=== PATIENT | male | born 1970 | race African-American/Black ===

== ENCOUNTER 2024-11-03 14:26 | Outpatient (CLI) | payer BC, SELFPAY ==
--- NOTE | ~2024-11-03 | XR_ITS ---
EXAMINATION: BONE SURVEY/METASTATIC SURVEY DATE: 11/03/2024 INDICATION: MGUS TECHNIQUE: A skeletal survey was performed including AP views of the chest, abdomen and pelvis; AP an d lateral/lateral swimmers views of the cervical, thoracic and lumbar spine; lateral view of the skul l, and AP and lateral views of the appendicular skeleton excluding the hands and feet. COMPARISON: None. FINDINGS: Mild thoracic dextrocurvature. Moderate cervical spondylosis. Lungs are clear with no focal airspace opacities, pulmonary edema, pleural effusion or pneumothorax. Heart size is normal. Multiple simple c ysts in the pelvis. No suspicious lytic or blastic bone lesions. IMPRESSION: 1. No lytic or blastic bone lesions suspicious for metastatic disease. Reviewed, dictated and finalized at location A.
--- OUTSIDE RECORDS SUMMARY | 2024-11-03 14:37 | XMS_ITS | Clinical Summary ---
Author Organization [facility] Address [address], [facility] [address] [place] [address] Phone Care Team Providers Care Real Estate Inspector Name Role Phone Anton Carvajal MD Primary Care Provider [phone] Vijay Smith MD Unavailable [phone] Allergies No known active allergies Medications amLODIPine (NORVASC) 10 MG Tablet Take 10 mg by mouth daily. 03/18/2021 Active lisinopril (PRINIVIL, ZESTRIL) 2.5 MG Tablet Take 2.5 mg by mouth. 03/18/2021 Active Active Problems Problem Noted Date Diagnosed Date Anemia due to unknown mechanism 10/09/2024 Neutropenia 10/09/2024 MGUS (monoclonal gammopathy of unknown significa nce) 10/09/2024 Encounters Date Type Department Care Team Description 10/09/2024 2:05 PM CDT Lab [facility] [address] [address] [facility] Anemia due to unknown mechanism; Neutropenia, unspecified type (HCC); MGUS (monoclonal gammopathy of unknown significance) 10/09/2024 2:00 PM CDT Office Visit [facility] [address] [address] Vijay Smith MD Anemia due to unknown mechanism (Primary Dx); Neutropenia, unspecified type (HCC); MGUS (monoclonal gammopathy of unknown significance) 10/09/2024 Travel from Last 3 Months Family History Medical History Relation Name Comments Cancer Father Relation Name Status Comments Brother Alive Child 1 Alive Child 2 Alive Child 3 Alive Child 4 Alive Father Mother Alive Sister 1 Alive Sister 2 Alive Social History Tobacco Use Types Packs/Day Years Used Date Smoking Tobacco: Former Cigarettes Smokeless Tobacco: Never Alcohol Use Standard Drinks/Week Comments Yes 0 (1 standard drink = 0.6 oz pur e alcohol) 1/2 pint on the weekends Sex and Gender Information Value Date Recorded Sex Assigned at Not on file Legal Sex Male 8:52 AM CDT Gender Identity Not on file Sexual Orientation Not on file Last Filed Vital Signs Vital Sign Reading Time Taken Comments Blood Pressure 128/74 10/09/2024 1:53 PM CDT Pulse 57 10/09/2024 1:53 PM CDT Temperature 36.8 C (98.2 F) 10/09/2024 1:53 PM CDT Respiratory Rate 18 10/09/2024 1:53 PM CDT Oxygen Saturation 99% 10/09/2024 1:53 PM CDT Inhaled Oxygen Concentration - - Weight 69.3 kg (152 lb 12.8 oz) 10/09/2024 1:53 PM CDT Height 167.6 cm (5' 6) 10/09/2024 1:53 PM CDT Body Mass Index 24.66 10/09/2024 1:53 PM CDT Plan of Treatment Upcoming Encounters Date Type Department Care Team (Late st Contact Info) Description 11/20/2024 2:15 PM CDT Office [facility] [address] [address] Vijay Smith MD [address] [place] [address] Health Maintenance Due Date Last Done Comments Hepatitis C Virus (HCV) Screening 1968 TdaP Immunization 1968 Hepatitis B Immunization (1 of 3 - 19+ 3-dose series) 01/01/1988 Cologuard 2013 Colonoscopy 2013 Colorectal Cancer Screening 2013 Immunochemical Fecal Occult Blood 2013 Pneumococcal Immunization (5 0+ years) (1 of 1 - PCV) 2018 Zoster Immunization (1 of 2) 2018 SARS-COV-2 Immunization (1 - 2023- season) 2023 PSA Discussion 01/01/2024 Influenza Immunization (#1) 2024 Respiratory Syncytial Virus (RSV) Immunization (Adult) (1 - 1-dose 75+ series) 01/01/2044 Human Papillomavirus (HPV) Immunization Aged Out No longer eligible b ased on patient's age to complete this topic Meningococcal Immunization (ACWY) Aged Out No longer eligible based on patient's age to complete this topic Rotavirus Immunization Aged Out No lo nger eligible based on patient's age to complete this topic Procedures Procedure Name Priority Date/Time Associated Diagnosis Comments SERUM FREE LIGHT CHAINS, [place] Routine 10/09/2024 2:08 PM CDT RANDOM UR PROTEIN ELECTROPHORESIS Routine 10/09/2024 2:08 PM CDT Anemia due to unknown mechanism Neutropenia, unspecified type (HCC) MGUS (monoclonal gammopathy of unknown significance) COMPLETE BLOOD COUNT (CBC) WITH DIFF Routine 10/09/2024 2:08 PM CDT Anemia due to unknown mechanism Neutropenia, unspecified type (HCC) MGUS (monoclonal gammopathy of unknown significance) LACTATE DEHYDROGENASE (LD) Routine 10/09/2024 2:08 PM CDT Anemia due to unknown mechanism Neutropenia, unspecified type (HCC) MGUS (monoclonal gammopathy of unknown significance) CMP (COMPREHENSIVE METABOLIC PANEL) Routine 10/09/2024 2:08 PM CDT Anemia due to unknown mechanism Neutropenia, unspecified type (HCC) MGUS (monoclonal gammopathy of unknown significance) HAPTOGLOBIN Routine 10/09/2024 2:08 PM CDT Anemia due to unknown mechanism Neutropenia, unspecified type (HCC) MGUS (monoclonal gammopathy of unknown significance) FOLIC ACID (FOLATE) Routine 10/09/2024 2 :08 PM CDT Anemia due to unknown mechanism Neutropenia, unspecified type (HCC) MGUS (monoclonal gammopathy of unknown significance) FERRITIN Routine 10/09/2024 2:08 PM CDT Anemia due to unknown mechanism Neutropenia, unspecified type (HCC) MGUS (monoclonal gammopathy of unknown significance) RETICULOCYTE COUNT (RETIC) Routine 10/09/2024 2:08 PM CDT Anemia due to unknown mechanism Neutropenia, unspecified type (HCC) MGUS (monoclonal gammopathy of unknown significance) IRON W/ IRON BINDING CAPACITY [place] Routine 10/09/2024 2:08 PM CDT Anemia due to unknown mechanism Neutropenia, unspecified type (HCC) MGUS (monoclonal gammopathy of unknown significance) VITAMIN B12 Routine 10/09/2024 2:08 PM CDT Anemia due to unknown mechanism Neutropenia, unspecified type (HCC) MGUS (monoclonal gammopathy of unknown significance) ELECTROPHORESIS W/ TOTAL PROTEIN SERUM Routine 10/09/2024 2:08 PM CDT Anemia due to unknown mechanism Neutropenia, unspecified type (HCC) MGUS (monoclonal gammopathy of unknown significance) IMMUNOGLOBULIN IGA, IGG & IGM QUANT Routine 10/09/2024 2:08 PM CDT Anemia due to unknown mechanism Neutropenia, unspecified type (HCC) MGUS (monoclonal gammopathy of unknown significance) from Last 3 Months Results * SERUM FREE LIGHT CHAINS, [place] (10/09/2024 2:08 PM CDT) FREE KAPPA LT CHAINS 15.4 2.9 - 20.7 mg/L [facility] FREE LAMBDA LT CHAINS 26.4 4.2 - 27.6 mg/L [facility] KAPPA/LAMBDA RATIO 0.58 0.22 - 1.74 [facility] 10/09/2024 2:08 PM CDT us Vijay Smith MD LAB SEND OUTS Final Result [facility] [address] [place] [address], * IRON W/ IRON BINDING CAPACITY [place] (10/09/2024 2:08 PM CDT) IRON 87 50 - 212 ug/dL [facility] UIBC 270 155 - 355 ug/dL [facility] TIBC 357 261 - 478 ug/dl [facility] % Saturation 24 20 - 50 % [facility] 10/09/2024 2:08 PM CDT Narrative [facility] - 10/09/2024 3:38 PM CDT Release to patient->Immediate Vijay Smith MD LAB SEND OUTS Final Result Performing Organization Address [facility]/ZIP Co de Phone Number [facility] [address] [place] [address], [place] [phone] * VITAMIN B12 (10/09/2024 2:08 PM CDT) Vitamin B12 271 180 - 914 pg/mL [facility] Blood 10/09/2024 2:08 PM CDT Narrative [facility] - 10/13/2024 2:36 PM CDT Release to patient->Immediate Vijay Smith MD CHEMISTRY ORDERABLES Final R esult [facility] [address] [place] [address], [place] [phone] * RANDOM UR PROTEIN ELECTROPHORESIS (10/09/2024 2:08 PM CDT) PROTEIN,TOTAL,URIN E <4.0 NOT ESTAB. MG/DL [facility] Comment:VERIFIED BY REPEAT ANALYSIS ALBUMIN, U 14.5 % [facility]TER [facility] [id number], U 8.3 % [facility] [id number], U 28.1 % [facility] BETA GLOBULIN, U 33.2 % [facility] GAMMA GLOBULIN, U 16.0 % CA NCER [facility] MPIKE, % NOT OBSERVED NOT OBSERVED % [facility] PLEASE NOTE: COMMENT [facility] Comment: PROTEIN ELECTROPHORESIS SCAN WILL FOLLOW VIA COMPUTER, MAIL, OR SWEAT BOX ATTENDANT DELIVERY. PDF . [facility] Urine 10/09/2024 2:08 PM CDT Narrative [facility] - 10/14/2024 1:08 PM CDT TESTING PERFORMED AT: [] LAB[address], [address], PHONE: [phone], SPANISH TEACHER: CLAUDETTE WORRELL, PHD Release to patient->Immediate Vijay Smith MD URINE ORDERABLES Final Resul t Performing Organization Address City/[facility] Co de Phone Number [facility] [address] [place] [address], * RETICULOCYTE COUNT (RETIC) (10/09/2024 2:08 PM CDT) Reticulocyte count 0.74 0.51 - 1.81 % [facility] RET-He 31.60 28.20 - 36.60 pg [facility] Comment: RET-He is a direct assessment of incorporation of iron into erythrocyte hemoglobin. It provides an indirect measure of the iron available for new erythropoiesis over past 2-4 days. Blood 10/09/2024 2:08 PM CDT Narrative [facility] - 10/09/2024 2:32 PM CDT Release to patient->Immediate Vijay Smith MD HEMATOLOGY ORDERABLES Final Result Performing Organization Address City/[facility] Co de Phone Number [facility] [address] [place] [address], [place] [phone] * (ABNORMAL) LACTATE DEHYDROGENASE (LD) (10/09/2024 2:08 PM CDT) LDH 100(L) 140 - 271 U/L [facility] Blood 10/09/2024 2:08 PM CDT [facility] - 10/09/2024 3:38 PM CDT Release to patient->Immediate Vijay Smith MD CHEMISTRY ORDERABLES Final R esult [facility] [address] [place] [address], [place] [phone] * (ABNORMAL) IMMUNOGLOBULIN IGA, IGG & IGM QUANT (10/09/2024 2:08 PM CDT) IGG 1,252 635 - 1,741 mg/dL [facility] IGA 103 66 - 433 mg/dL [facility] IGM 30(L) 45 - 281 mg/dL [facility] Blood 10/09/2024 2:08 PM CDT [facility] - 10/13/2024 2:00 PM CDT Release to patient->Immediate Vijay Smith MD CHEMISTRY ORDERABLES Final R esult Performing Organization Address City/[facility]/ZIP Co de Phone Number [facility] [address] [place] [address], [place] [phone] * HAPTOGLOBIN (10/09/2024 2:08 PM CDT) HAPTO 164 44 - 215 mg/dL [facility] Blood 10/09/2024 2:08 PM CDT [facility] - 10/13/2024 2:00 PM CDT Release to patient->Immediate Vijay Smith MD CHEMISTRY ORDERABLES Final R esult Performing Organization Address [facility] de Phone Number [facility] [place] [address], [place] [phone] * FOLIC ACID (FOLATE) (10/09/2024 2:08 PM CDT) Folate 10.71 >=5.90 ng/mL [facility] Blood 10/09/2024 2:08 PM CDT Narrative [facility] - 10/13/2024 2:36 PM CDT Release to patient->Immediate IS THE PATIENT REQUIRED TO BE FASTING FOR 12 HOURS?->No Vijay Smith MD CHEMISTRY ORDERABLES Final R esult Performing Organization Address [facility] Co de Phone Number [facility] [place] [address], [place] [phone] * FERRITIN (10/09/2024 2:08 PM CDT) Ferritin 122 24 - 336 ng/mL [facility] Blood 10/09/2024 2:08 PM CDT [facility] - 10/13/2024 2:36 PM CDT Release to patient->Immediate Vijay Smith MD CHEMISTRY ORDERABLES Final R esult Performing Organization Address [facility] Co de Phone Number [facility] [place] [address], [place] [phone] * (ABNORMAL) ELECTROPHORESIS W/ TOTAL PROTEIN SERUM (10/09/2024 2:08 PM CDT) PROTEIN, TOTAL, SERUM 6.8 6.0 - 8.5 G/DL [facility] ALBUMIN 3.7 2.9 - 4.4 G/DL [facility] [id number] 0.2 0.0 - 0.4 G/DL [facility] [id number] 0.7 0.4 - 1.0 G/DL [facility] BETA GLOBULIN 1.0 0.7 - 1.3 G/DL [facility] GAMMA GLOBULIN 1.2 0.4 - 1.8 G/DL [facility] M-SPIKE 0.5(H) NOT OBSERVED G/DL [facility] GLOBULIN, TOTAL 3.1 2.2 - 3.9 G/DL [facility] A/G RATIO 1.2 0.7 - 1.7 [facility] PLEASE NOTE: COMMENT [facility] Comment: PROTEIN ELECTROPHORESIS SCAN WILL FOLLOW VIA COMPUTER, MAIL, OR SWEAT BOX ATTENDANT DELIVERY. PDF . [facility] Blood 10/09/2024 2:08 PM CDT Narrative [facility] - 10/10/2024 3:08 PM CDT TESTING PERFORMED AT: [] [facility], [address] [place] [address], [place], [address], PHONE: [phone], SPANISH TEACHER: CLAUDETTE WORRELL, PHD Release to patient->Immediate us Vijay Smith MD CHEMISTRY ORDERABLES Final R esult [facility] [place] [address], * CMP (COMPREHENSIVE METABOLIC PANEL) (10/09/2024 2:08 PM CDT) Glucose 89 70 - 105 mg/dL [facility] Blood Urea Nitrogen 13 7 - 25 mg/dL [facility] Creatinine 1.1 0.7 - 1.3 mg/dL [facility] Sodium 137 136 - 145 mEq/L [facility] Potassium 3.9 3.5 - 5.1 mEq/L [facility] Chloride 101 98 - 107 mEq/L [facility] Bicarbonate 29 21 - 31 mEq/L [facility] Total Bilirubin 0.6 0.3 - 1.0 mg/dL [facility] Alk. Phosphatase 44 34 - 104 U/L [facility] Aspartate Aminotransferase 24 13 - 39 U/L [facility] Alanine Aminotransferase 18 7 - 52 U/L [facility] Total Protein 6.7 6.4 - 8.9 g/dL [facility] Albumin 4.5 3.5 - 5.7 g/dL [facility] Calcium 9.4 8.6 - 10.3 mg/dL [facility] Anion Gap 10.9 7.0 - 15.0 mEq/L [facility] Globulin 2.2 2.0 - 3.5 g/dL [facility] EGFR 79 >60 ml/min/1. 73m2 [facility] Comment: This eGFR is calculated using 2020 CKD-EPI Creatinine equation without race modifier based on the NKF-ASN task force recommendations Equation: cUGK=105*min(SCr/k,1)a*max(SCr/k,1)-1.200*0.9938Age*1.012 (if female), where SCr is serum creatinine, k is 0.7 for females and 0.9 for males, and a is -0.241 for females and -0.302 for males Blood 10/09/2024 2:08 PM CDT Narrative [facility] - 10/09/2024 3:38 PM CDT Release to patient->Immediate IS THE PATIENT REQUIRED TO BE FASTING FOR 8 HOURS?->No us Vijay Smith MD CHEMISTRY ORDERABLES Final R esult [facility] [place] [address], * (ABNORMAL) COMPLETE BLOOD COUNT (CBC) WITH DIFF (10/09/2024 2:08 PM CDT) WBC 3.7(L) 4.0 - 10.0 10*3/uL [facility] HGB 12.6(L) 13.7 - 17.5 g/dL [facility] HCT 39.2(L) 40.1 - 51.0 % [facility] PLT 206 163 - 369 10*3/uL [facility] MPV 10.0 9.4 - 12.4 fL [facility] RBC 4.49(L) 4.63 - 6.08 10*6/uL [facility] MCV 87 79 - 95 fL [facility] MCH 28.1 25.6 - 32.2 pg [facility] MCHC 32.1(L) 32.2 - 36.5 g/dL [facility] RDW 13.5 11.6 - 14.4 % [facility] Absolute Neutrophil Count 1,076 cells/uL [facility] Absolute Seg Count 1,076(L) 1,440 - 6,600 cells/uL [facility] Absolute Lymph Count 2,152 760 - 4,000 cells/uL [facility] Absolute [place] Count 371 160 - 1,200 cells/uL [facility] Absolute Eos Count 111 0 - 300 cells/uL [facility] Segmented Neutrophils 29(L) 36 - 66 % [facility] Lymphocytes 58(H) 19 - 40 % [facility] Monocytes 10 4 - 12 % [facility] Eosinophils 3 0 - 3 % [facility] WBC Estimate Low [facility] Platelet Estimate Normal [facility] RBC Morphology Normal [facility] R [facility] Blood 10/09/2024 2:08 PM CDT Narrative [facility] - 10/09/2024 4:15 PM CDT Release to patient->Immediate us Vijay Smith MD HEMATOLOGY ORDERABLES Final Result [facility] [place] [address], from Last 3 Months Insurance [facility] Care Teams Real Estate Inspector Relationship Specialty Start Date End Date Anton Carvajal MD [address] [place] [address] PCP - General Family Medicine 10/08/24 Vijay Smith MD [address] [place] [phone] Consulting Physician Oncology 10/08/24
--- OUTSIDE RECORDS SUMMARY | 2024-11-03 14:37 | XMS_ITS | Encounter Summary ---
Author Organization [facility] Address [address] [place] [address] Care Team Providers Care Energy Trader Name Role Phone Unavailable Primary Care Provider Unavailabl e Reason for Referral * Radiology Services (Routine) - Open Specialty Diagnoses / Procedures Referred By Janet wilson Referred To Contact Diagnoses MGUS (monoclonal gammopathy of unknown significance) Procedures XR BONE SURVEY COMPLETE Arash Martinez MD [address] [place] [phone] Phone: tel: fax: Referral ID Status Reason Start Date Expiration Date Visits Re quested Visits Authorized [id number] Open 11/03/2024 12/04/2025 1 1 Encounter Details Date Type Department Care Team (Late st Contact Info) Description 11/03/2024 1:30 PM CDT Office Visit [facility] Oncology and Hematology - [place] [address] [place] [address] [facility] [address] [place] [address] Arash Martinez MD [address] [place] [address] Chronic anemia (Primary Dx); MGUS (monoclonal gammopathy of unknown significance) Social History Tobacco Use Types Packs/Day Years Used Date Smoking Tobacco: Former Cigarettes 1 30 0 06/07/1982 - 06/07/2012 Smokeless Tobacco: Never Tobacco Cessation:Counseling Given: Not Answered Alcohol Use Standard Drinks/Week Comments Yes 0 (1 standard drink = 0.6 oz pur e alcohol) Socially Sex and Gender Information Value Date Recorded Sex Assigned at Not on file Legal Sex Male 1:05 PM CDT Gender Identity Not on file Sexual Orientation Not on file documented as of this encounter Last Filed Vital Signs Vital Sign Reading Time Taken Comments Blood Pressure 115/77 11/03/2024 1:34 PM CDT Pulse 53 11/03/2024 1:34 PM CDT Temperature 36.3 C (97.3 F) 11/03/2024 1:34 PM CDT Respiratory Rate 15 11/03/2024 1:34 PM CDT Oxygen Saturation 97% 11/03/2024 1:34 PM CDT Inhaled Oxygen Concentration - - Weight 68.6 kg (151 lb 3.2 oz) 11/03/2024 1:34 P M CDT Height 167.6 cm (5' 6) 11/03/2024 1:34 PM CDT Body Mass Index 24.4 11/03/2024 1:34 PM CDT documented in this encounter Plan of Treatment Upcoming Encounters Date Type Department Care Team (Late st Contact Info) Description 11/10/2024 4:30 PM CDT Telephone Check Up [facility] Oncology and Hematology [facility] [address] [place] [phone] Arash Martinez MD [address] [place], [place] [phone] 02/06/2025 11:45 AM CDT Office Visit [facility] Oncology and Hematology [place] [address] [place] [phone] Arash Martinez MD [address] [place] [address] [place] [phone] Scheduled Orders Name Type Priority Associated Diagnoses Orde r Schedule CBC WITH DIFFERENTIAL Lab Stat Chronic anemia Expected: 01/26/2025, Expires: 11/03/2025 VITAMIN B12 AND FOLATE Lab Routine Chronic anemia Expected: 01/26/2025, Expires: 11/03/2025 BASIC METABOLIC PANEL Lab Stat Chronic anemia Expected: 01/26/2025, Expires: 11/03/2025 XR BONE SURVEY COMPLETE Imaging Routine MGUS (monoclonal gammopathy of unknown significance) 1 Occurrences starting 11/03/2024 until 11/03/2025 documented as of this encounter Visit Diagnoses Diagnosis Chronic anemia- Primary Anemia, unspecified MGUS (monoclonal gammopathy of unknown significance) Monoclonal paraproteinemia documented in this encounter
--- OUTSIDE RECORDS SUMMARY | 2024-11-03 14:37 | XMS_ITS | Clinical Summary ---
Author Organization [facility] Address [address] [place] [phone] Care Team Providers Care Spray Gunner Name Role Phone Anton Carvajal MD Primary Care Provider [phone] Allergies No known active allergies Medications amLODIPine (NORVASC) 10 mg tablet 03/18/2021 Active lisinopriL (PRINIVIL,ZESTRIL) 2.5 mg tablet 03/18/2021 Activ e naproxen (NAPROSYN) 500 mg tablet 03/31/2021 Active Active Problems Problem Noted Date Diagnosed Date Right elbow pain 04/11/2021 Olecranon bursitis of right elbow 04/11/2021 Surgical History Surgery Date Site/Laterality Comments NO PAST SURGERIES Medical History Medical History Date Comments Hypertension Family History Medical History Relation Name Comments No Known Problems Father No Known Problems Mother Relation Name Status Comments Father Mother Social History Tobacco Use Types Packs/Day Years Used Date Smoking Tobacco: Never Personal Safety Answer Date Recorded Getting School Help Needed Not on file 06/22 Sex and Gender Information Value Date Recorded Sex Assigned at Not on file Legal Sex Male 12:57 AM CIRCUS RIDER Gender Identity Not on file Sexual Orientation Not on file 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 Not on file Not on file Obstetrics History Last Filed Vital Signs Vital Sign Reading Time Taken Comments Blood Pressure 145/80 05/16/2013 10:13 PM CIRCUS RIDER Pulse 90 05/16/2013 10:13 PM CIRCUS RIDER Temperature 38.3 C (100.9 F) 05/16/2013 10:13 PM CIRCUS RIDER Respiratory Rate - - Oxygen Saturation 95% 05/16/2013 10:13 PM CIRCUS RIDER Inhaled Oxygen Concentration - - Weight 74.8 kg (165 lb) 04/11/2021 8:39 AM CIRCUS RIDER Height 167.6 cm (5' 6) 04/11/2021 8:39 AM CIRCUS RIDER Body Mass Index 26.63 04/11/2021 8:39 AM CIRCUS RIDER Plan of Treatment Not on file Insurance [employer] Care Teams Spray Gunner Relationship Specialty Start Date End Date Anton Carvajal MD PCP - General Emergency Medicine 04/07/21
--- OUTSIDE RECORDS SUMMARY | 2024-11-03 14:37 | XMS_ITS | Clinical Summary ---
Author Organization [facility]ade Davila Address [address] [place] [address] Care Team Providers Care Patient Financial Representative Name Role Phone Unavailable Primary Care Provider Unavailabl e Allergies No known active allergies Medications amLODIPine (NORVASC) 10 mg tablet Take 10 mg by mouth daily. Active lisinopriL (PRINIVIL) 2.5 mg tablet Take 2.5 mg by mouth daily. Active Active Problems No known active problems Encounters Date Type Department Care Team Description 11/03/2024 1:30 PM CDT Office Visit [facility] - [place] [address] [place] [address] Arash Martinez MD Chronic anemia (Primary Dx); MGUS (monoclonal gammopathy of unknown significance) from Last 3 Months Family History Medical History Relation Name Comments No Known Problems Brother No Known Problems Child 1 No Known Problems Child 2 No Known Problems Child 3 No Known Problems Child 4 No Known Problems Child 5 Lung Cancer Father No Known Problems Mother Diabetes Sister 1 No Known Problems Sister 2 Relation Name Status Comments Brother Alive Child 1 Alive Child 2 Alive Child 3 Alive Child 4 Alive Child 5 Alive Father Mother Alive Sister 1 Alive [...] Mass Index 24.4 11/03/2024 1:34 PM CDT Plan of Treatment Upcoming Encounters Date Type Department Care Team (Late st Contact Info) Description 11/10/2024 4:30 PM CDT Telephone Check Up [facility] [place] [address] [place] [address] Arash Martinez MD [address] [place] [phone] 02/06/2025 11:45 AM CDT Office Visit [facility] [address] [place] [phone] Arash Martinez MD [address] [place] [phone] Health Maintenance Due Date Last Done Comments DTAP/TDAP/TD VACCINES (1 - Tdap) 01/01/1988 HEPATITIS B VACCINES (1 of 3 - 19+ 3-dose series) 12/09 COLORECTAL SCREENING 2013 Colorectal Cancer Screening 2013 FIT-DNA Q 3 years 2013 FIT/FOBT Q 1 year 2013 Flex Sig/CT Colonography Q 5 years 2013 ZOSTER VACCINE (1 of 2) 2018 Preventative Visit- Commercial 04/09/2024 INFLUENZA VACCINE (#1) 2024 Insurance [facility]
--- OUTSIDE RECORDS SUMMARY | 2024-11-03 14:37 | XMS_ITS | Clinical Summary ---
Author Organization [facility] Address [address] [address] Phone Care Team Providers Care Air Conditioning Specialist Name Role Phone Anton Carvajal MD Primary Care Provider [phone] Allergies No known active allergies Medications lisinopril (PRINIVIL) 2.5 MG tablet Take 2.5 mg by mouth 1 (one) time each day Active amLODIPine (NORVASC) 10 MG tablet Take 10 mg by mouth 1 (one) time each day Active ergocalciferol (VITAMIN D-2) 1.25 MG (21109 UT) capsule Take 50,000 Units by mouth 1 (one) time per week Active Active Problems Problem Noted Date Diagnosed Date Chronic kidney disease 09/16/2024 Protein electrophoresis outside reference range 09/16/2024 Complex renal cyst 09/16/2024 Abnormal renal function test 08/19/2024 Hypertension 08/19/2024 Type 2 diabetes mellitus without complication Resolved Problems Problem Noted Date Diagnosed Date Resolved Date Renal insufficiency 08/18/2024 09/17/19 25 Vitamin D deficiency 08/18/2024 025 Encounters Date Type Department Care Team Description 09/16/2024 1:00 PM CDT Telemedicine [facility] [address] [facility] [address] [place] [address] Mor Youngblood MD Chronic kidney disease, not otherwise specified (Primary Dx); Hypertension; Complex renal cyst; Protein electrophoresis outside reference range 08/19/2024 2:00 PM CDT Office Visit [facility] [address] [facility] [place] [address] Mor Youngblood MD Abnormal renal function test (Primary Dx); Hypertension; Type 2 diabetes mellitus without complication ([facility]) from Last 3 Months Social History Tobacco Use Types Packs/Day Years Used Date Smoking Tobacco: Never Smokeless Tobacco: Never Alcohol Use Standard Drinks/Week Comments Yes 0 (1 standard drink = 0.6 oz pur e alcohol) Sex and Gender Information Value Date Recorded Sex Assigned at Not on file Legal Sex Male 8:38 AM MDT Gender Identity Not on file Sexual Orientation Not on file Last Filed Vital Signs Vital Sign Reading Time Taken Comments Blood Pressure 122/81 08/19/2024 1:49 PM CDT Pulse 63 08/19/2024 1:49 PM CDT Temperature - - Respiratory Rate - - Oxygen Saturation - - Inhaled Oxygen Concentration - - Weight 70.8 kg (156 lb) 08/19/2024 1:49 PM CDT Height - - Body Mass Index - - Plan of Treatment Upcoming Encounters Date Type Department Care Team (Late st Contact Info) Description 12/16/2024 2:00 PM CDT Office Visit [facility] [address] [facility] [address] [place] [address] Mor Youngblood MD [address] [address] Health Maintenance Due Date Last Done Comments Diabetic Foot Exam 1978 Ophthalmology Exam 1978 Pneumococcal PPSV23 Highest Risk Adult (1 of 3 - PCV13 ) 01/01/1988 Influenza Vaccine (#1) 2024 Insurance [facility] Care Teams Air Conditioning Specialist Relationship Specialty Start Date End Date Anton Carvajal MD [facility] - General 08/14/24
--- OUTSIDE RECORDS SUMMARY | 2024-11-03 14:37 | XMS_ITS | Referral Summary ---
Author Organization [facility] Building Address [address] [place] [phone] Care Team Providers Care Academic Intern Name Role Phone Anton Carvajal MD Primary Care Provider [phone] Allergies No known active allergies Medications amLODIPine (NORVASC) 10 mg tablet 03/18/2021 Active lisinopriL (PRINIVIL,ZESTRIL) 2.5 mg tablet 03/18/2021 Activ e naproxen (NAPROSYN) 500 mg tablet 03/31/2021 Active Active Problems Problem Noted Date Diagnosed Date Right elbow pain 04/11/2021 Olecranon bursitis of right elbow 04/11/2021 Social History Tobacco Use Types Packs/Day Years Used Date Smoking Tobacco: Never Personal Safety Answer Date Recorded Getting School Help Needed Not on file 06/22 Sex and Gender Information Value Date Recorded Sex Assigned at Not on file Legal Sex Male 12:57 AM PROP SAWYER Gender Identity Not on file Sexual Orientation Not on file 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 Not on file Not on file Not on file Last Filed Vital Signs Vital Sign Reading Time Taken Comments Blood Pressure 145/80 05/16/2013 10:13 PM PROP SAWYER Pulse 90 05/16/2013 10:13 PM PROP SAWYER Temperature 38.3 C (100.9 F) 05/16/2013 10:13 PM PROP SAWYER Respiratory Rate - - Oxygen Saturation 95% 05/16/2013 10:13 PM PROP SAWYER Inhaled Oxygen Concentration - - Weight 74.8 kg (165 lb) 04/11/2021 8:39 AM PROP SAWYER Height 167.6 cm (5' 6) 04/11/2021 8:39 AM PROP SAWYER Body Mass Index 26.63 04/11/2021 8:39 AM PROP SAWYER Plan of Treatment Not on file Insurance [employer] O[employer] [facility] [employer] Care Teams Academic Intern Relationship Specialty Start Date End Date Anton Carvajal MD PCP - General Emergency Medicine 04/07/21
--- OUTSIDE RECORDS SUMMARY | 2024-11-03 14:37 | XMS_ITS | Clinical Summary ---
Author Organization [facility] Address [facility] [place] [address] Care Team Providers Care Web Coordinator Name Role Phone Unavailable Primary Care Provider Unavailabl e Social History Tobacco Use Types Packs/Day Years Used Date Smoking Tobacco: Never Assessed Sex and Gender Information Value Date Recorded Sex Assigned at Not on file Legal Sex Male 6:11 PM CDT Gender Identity Not on file Sexual Orientation Not on file Last Filed Vital Signs Vital Sign Reading Time Taken Comments Blood Pressure 132/80 08/30/2015 8:44 AM CDT Pulse 74 08/30/2015 8:44 AM CDT Temperature - - Respiratory Rate - - Oxygen Saturation - - Inhaled Oxygen Concentration - - Weight 71.7 kg (158 lb) 08/30/2015 8:44 AM CDT Height 166.4 cm (5' 5.5) 08/18/2015 8:15 AM CDT Body Mass Index 25.89 08/18/2015 8:15 AM CDT Plan of Treatment Health Maintenance Due Date Last Done Comments Colorectal Cancer Screening Colonoscopy (10 Years) 1968 Annual Physical 01/01/1972 Hepatitis C 1986 DTaP, Tdap and Td Vaccines ( 1 - Tdap) 01/01/1988 Hepatitis B Vaccines (1 of 3 - 19+ 3-dose series) 01/01/1988 Pneumococcal Vaccine: 50+ Ye ars (1 of 1 - PCV) 2018 Zoster Vaccines (1 of 2) 2018 COVID-19 Vaccine (2023-2 5 season) 2023 Meningococcal B Vaccine Aged Out No l onger eligible based on patient's age to complete this topic Meningococcal Vaccine Aged Out No richard jillian eligible based on patient's age to complete this topic RSV Immunizations Under 20 Months Aged Out No longer eligible based on patient's age to complete this topic
== END 2024-11-03 14:27 | disposition home or self-care (01) ==
PROVIDERS: PCP Emergency Medicine; Visit Provider Internal Medicine Hematology & Oncology
DX: D47.2 Monoclonal gammopathy (principal)
CPT/HCPCS: 77075